=== PATIENT | male | born 1955 | race Caucasian/White ===

== ENCOUNTER 2023-11-04 08:46 | Emergency (ER) | payer MEDICAID ==
[~2023-11-04] VITALS: Ht 188 cm; Wt 88.0 kg
[2023-11-04 08:52] VITALS: BP 138/88; PULSE 65; RESP 16; TEMP 97.5
[2023-11-04 09:31] LABS: BASOPHILS % (AUTO) 0.8 % (0.0-2.0); EOSINOPHILS % (AUTO) 5.2 % (1.0-6.0); HEMATOCRIT 44.5 % (41-53); HEMOGLOBIN 14.8 g/dL (13.5-17.5); LYMPHOCYTES # (AUTO) 2.3 K/uL (1.0-4.8); MEAN CORPUSCULAR HEMOGLOBIN 28.2 pg (26.0-34.0); MEAN CORPUSCULAR HGB CONC 33.3 G/dL (31.0-37.0); MEAN CORPUSCULAR VOLUME 85 fL (80-100); MONOCYTES # (AUTO) 0.7 K/uL (0.1-1.0); NEUTROPHILS # (AUTO) 2.1 K/uL (1.8-7.7); PLATELET COUNT (AUTO) 253 K/uL (150-450); RED BLOOD CELL COUNT(AUTO) 5.25 MIL/uL (4.50-5.90); RED CELL DISTRIBUTION WIDTH 13.5 % (11.5-14.5); WHITE BLOOD COUNT (AUTO) 5.4 K/uL (4.5-11.0)
[2023-11-04 09:40] LABS: ANION GAP 9 mmol/L (8-16); CARBON DIOXIDE 26 mmol/L (22-29); CHLORIDE 104 mmol/L (98-107); CREATININE 0.91 mg/dL (0.60-1.30); GLOMERULAR FILTR. RATE CALC > 60 mL/min (>60); GLUCOSE,RANDOM 105 mg/dL (70-110); POTASSIUM 3.7 mmol/L (3.5-5.1); SODIUM SERUM 139 mmol/L (136-145); UREA NITROGEN, BLOOD 16 mg/dL (7-18)
[2023-11-04 09:46] LABS: ALANINE AMINOTRANSFERASE 24 U/L (12-78); ALBUMIN 3.8 g/dL (3.4-5.0); ALKALINE PHOSPHATASE 79 U/L (46-116); ASPARTATE AMINOTRANSFERASE 26 U/L (15-37); BILIRUBIN,TOTAL 0.7 mg/dL (0.1-1.0); LIPASE 43 U/L (16-77)
[2023-11-04 09:48] LABS: LACTIC ACID 0.7 mmol/L (0.4-2.0); TROPONIN I-HIGH SENSITIVITY 5 ng/L (<76)
[2023-11-04] MEDS: MORPHINE SULFATE 4 MG/ML SYRINGE IVP ONE (10:00)
[2023-11-04] MEDS: ONDANSETRON HCL 4 MG/2 ML VIAL IVP ONE (10:01)
[2023-11-04] MEDS: KETOROLAC TROMETHAMINE 30 MG/ML VIAL IVP ONE (10:01)
[2023-11-04] MEDS ORDERED: IBUP-1554 PO (12:19)
[2023-11-04] MEDS ORDERED: ACET-2080 PO (12:19)
== END 2023-11-04 12:28 | disposition home or self-care (01) ==
LOC: EMS 08:46
DX: S46.911A Strain of unspecified muscle, fascia and tendon at shoulder and upper arm level, right arm, initial encounter (principal); I10 Essential (primary) hypertension; Z89.022 Acquired absence of left finger(s); Z98.890 Other specified postprocedural states; X58.XXXA Exposure to other specified factors, initial encounter; Y93.89 Activity, other specified; Y92.89 Other specified places as the place of occurrence of the external cause; Y99.8 Other external cause status
CPT/HCPCS: 99285; 74176; 96374; 71045; 96375; 80053; 83605; 83690; 84484; 85025; 36415; 93005; J1885; J2270; J2405